=== PATIENT | male | born 1965 ===

== ENCOUNTER 2017-08-14 12:10 | Emergency (ER) | payer BC ==
[2017-08-14 12:46] VITALS: RESP 18
--- NOTE | 2017-08-14 13:16 | C.PDOC ---
History Of Present Illness <Eleuterio Hankins E - Last Filed: 08/14/17 15:26> <Alfred Weekspson M - Last Filed: 08/16/17 11:53> Patient is a 52 year old male with no past medical history who presents to the ED with complaints of body aches, cough, headache, chills, night sweats and diarrhea that started on 08/11/17. As per , patient;s temperature on saturday was 101.5. In addition, patient states that his symptoms have worsened since and noted his non-productive cough became productive with yellow phlegm yesterday. Patient admits to fever, chills, cough, night sweats, diarrhea , SOB and muscle aches. As per patient's , patient was sick with food poisoning 2 months ago. (Love Hankinsbebe Jessica) History Per: Patient History/Exam Limitations: no limitations Onset/Duration Of Symptoms: Days Current Symptoms Are (Timing): Still Present Severity: Moderate Pain Scale Rating Of: 5 Recent travel outside of the [place]: No Additional History Per: Patient <Eleuterio Hankins - Last Filed: 08/14/17 15:26> <MickyAlfredFreeman M - Last Filed: 08/16/17 11:53> Time Seen by Provider: 08/14/17 12:55 Chief Complaint (Nursing): Flu-like Symptoms Past Medical History Family History: States: Unknown Family Hx - Social History Hx Alcohol Use: No Hx Substance Use: No <Eleuterio Hankins - Last Filed: 08/14/17 15:26> Vital Signs: Last Vital Signs Temp 98.2 F 08/14/17 14:45 Pulse 66 08/14/17 14:45 Resp 18 08/14/17 14:45 BP 111/76 08/14/17 14:45 Pulse Ox 97 08/14/17 15:38 Review Of Systems Constitutional: Positive for: Fever, Chills Eyes: Negative for: Pain, Vision Change, Conjunctivae Inflammation ENT: Positive for: Nose Congestion. Negative for: Ear Pain, Ear Discharge, Nose Pain, Nose Discharge Cardiovascular: Negative for: Chest Pain, Palpitations, Orthopnea, Light Headedness Respiratory: Positive for: Cough, Shortness of Breath. Negative for: Hemoptysis , SOB with Excertion, Pleuritic Pain, Wheezing Gastrointestinal: Positive for: Diarrhea. Negative for: Nausea, Vomiting, Abdominal Pain, Constipation, Melena, Hematochezia Musculoskeletal: Negative for: Neck Pain, Shoulder Pain, Arm Pain Skin: Negative for: Rash Neurological: Negative for: Weakness, Numbness <Love Hankinsbebe Jaskaran - Last Filed: 08/14/17 15:26> Physical Exam - Physical Exam Appears: No Acute Distress Skin: Normal Color Head: Atraumatic, Normacephalic Eye(s): bilateral: Normal Inspection, PERRL, EOMI Ear(s): Bilateral: Normal Nose: Normal, No Flaring, No Discharge, No Epistaxis, No Deformity, No Tenderness Oral Mucosa: Dry Tongue: Normal Appearing, No Swelling, No Lesions Lips: Normal Appearing Throat: Normal, No Erythema, No Exudate, No Drooling Neck: Normal Lymphatic: Normal Exam Cardiovascular: Rhythm Regular, No Murmur Respiratory: No Decreased Breath Sounds, No Accessory Muscle Use, Wheezing ( Very mild expiratory wheezing ) Gastrointestinal/Abdominal: Normal Exam, Bowel Sounds, Soft, No Tenderness Back: Straight Leg Raising (Pain elicited with straight leg raising at 45 degree ), Other (right lower lumbar tenderness ) Extremity: Normal ROM, No Tenderness, No Pedal Edema Extremity: Bilateral: Atraumatic Pulses: Right Dorsalis Pedis: Normal Neurological/Psych: Oriented x3, Normal Speech <Love Hankinsbebe Jaskaran - Last Filed: 08/14/17 15:26> ED Course And Treatment O2 Sat by Pulse Oximetry: 97 - Radiology CXR: Read By Radiologist CXR Interpretation: Yes: No Acute Disease <Eleuterio Hankins - Last Filed: 08/14/17 15:26> Medical Decision Making <Eleuterio Hankins - Last Filed: 08/14/17 15:26> <Pete Weeks - Last Filed: 08/16/17 11:53> Medical Decision Making: Lumbar Spine X-ray: Unremarkable radiographs of the lumbar spine. (Eleuterio Hankins) patient with cough and fever, no fever now, neg cxr will treat for bronchitis. patent with lower back pain radiating down his leg, afebrile, (+) straight leg test, nv intact, no gross swelling, patient discharged home to follow up with pmd in 2 days. (Pete Weeks) Disposition <Love Hankinsbebe Jessica - Last Filed: 08/14/17 15:26> Counseled Patient/Family Regarding: Studies Performed, Diagnosis, Need For Followup, Rx Given - Disposition Disposition Time: 14:35 <Pete Weeks - Last Filed: 08/16/17 11:53> - Disposition Disposition: HOME/ ROUTINE Condition: STABLE Additional Instructions: follow up with your doctor or medical clinic in 2 days call to make an appointment take medications as prescribed return to hospital if symptoms worsens or progress Prescriptions: Albuterol HFA [Ventolin HFA 90 mcg/actuation (8 g)] 2 puff IH [id number] #1 puff Azithromycin [Zithromax] 250 mg PO DAILY #4 tab Naproxen [Naprosyn] 500 mg PO BID PRN #16 tab PRN Reason: Pain, Moderate (4-7) predniSONE [predniSONE Tab] 40 mg PO DAILY #4 tab Promethazine/Codeine [Phenergan/Codeine Oral Syrup] 5 ml PO BID PRN #80 udc PRN Reason: Cough And Congestion Instructions: Sciatica, Acute Bronchitis Forms: General Discharge Instructions, [facility] (Macedonian) - Clinical Impression Clinical Impression: Bronchitis, Sciatica
[2017-08-14] MEDS ORDERED: Albuterol 0.083% Inhal Sol (2.5 mg/3 mL) UD ONE (13:23)
[2017-08-14] MEDS: Albuterol 0.042% Inhal Sol (1.25 mg/3 mL) UD INH ONE (13:24)
[2017-08-14] MEDS ORDERED: Acetaminophen-Codeine 300/30 mg Tab PO STA (14:07)
--- NOTE | 2017-08-14 14:43 | RAD ---
HISTORY: Cough and congestion COMPARISON: No prior. TECHNIQUE: Chest PA and lateral FINDINGS: LUNGS: No active pulmonary disease. PLEURA: No significant pleural effusion identified. No pneumothorax apparent. CARDIOVASCULAR: Normal. OSSEOUS STRUCTURES: Mild degenerative changes. VISUALIZED UPPER ABDOMEN: Normal. OTHER FINDINGS: None. IMPRESSION: No active disease.
[2017-08-14 14:46] VITALS: BP 111/76; PULSE 66; TEMP 98.2
--- NOTE | 2017-08-14 14:50 | RAD ---
PROCEDURE: Radiographs of the Lumbar Spine. HISTORY: back pain COMPARISON: No prior. FINDINGS: BONES: Normal alignment. No listhesis. No fracture. DISC SPACES: Unremarkable. OTHER FINDINGS: None. IMPRESSION: Unremarkable radiographs of the lumbar spine.
[2017-08-14 14:59] VITALS: O2SAT 97
== END 2017-08-14 14:48 | disposition home or self-care (01) ==
LOC: C.ER 12:10
DX: J40 Bronchitis, not specified as acute or chronic (principal); M54.30 Sciatica, unspecified side

== ENCOUNTER 2017-10-17 06:32 | Day surgery (SDC) | payer BC ==
[2017-10-17] MEDS ORDERED: Propofol 10 mg/ml Inj (20 ML) ONE (08:54)
[2017-10-17] MEDS ORDERED: Lactated Ringer's 1,000 ML IV ONE (09:02)
[2017-10-17] MEDS: Lactated Ringer's 1,000 ML IV ONE ×2 (09:02→09:24)
[2017-10-17 09:46] VITALS: TEMP 99.1; O2SAT 99
[2017-10-17 10:26] VITALS: BP 116/80; PULSE 57; RESP 14
== END 2017-10-17 10:24 | disposition home or self-care (01) ==
LOC: C.ENDO 06:32
PROVIDERS: ATTEND Internal Medicine Gastroenterology
DX: D12.4 Benign neoplasm of descending colon (principal); K64.8 Other hemorrhoids; K57.90 Diverticulosis of intestine, part unspecified, without perforation or abscess without bleeding
CPT/HCPCS: 45380; 88305; J2704